=== PATIENT | female | born 1995 | race Caucasian/White ===

== ENCOUNTER → 2019-01-07 | Outpatient (CLI) | payer OTHER ==
--- NOTE | 2019-01-07 19:46 | Diagnostic Imaging Report ---
INDICATION: Palpable nodule in the right breast. FINDINGS: Sonographic interrogation of the area of palpable abnormality in the right breast was performed. This corresponds to the 9 o'clock location approximately 1 cm from the nipple. There is a circumscribed ovoid hypoechoic nodule just below the skin surface at this location measuring 5 mm x 3 mm x 5 mm. The nodule does demonstrate some posterior acoustic enhancement. No significant internal vascularity is seen. No other lesions are identified. IMPRESSION: Circumscribed hypoechoic nodule just below the skin surface at the 9 o'clock location of the right breast 1 cm from the nipple. This most likely represents a sebaceous cyst. No other abnormalities are seen. ACR BI-RADS Category 2: Benign findings. Dictated by: Dictated on workstation # [id number]
== END ==
LOC: RAD 11:48
PROVIDERS: ATTEND Obstetrics & Gynecology
DX: N63.10 Unspecified lump in the right breast, unspecified quadrant (principal)